=== PATIENT | female | born 1960 | race Two or more races ===

== ENCOUNTER 2016-11-22 15:47 | Emergency (ER) | payer OTHER ==
[~2016-11-22] VITALS: Ht 162.6 cm; Wt 90.7 kg
[2016-11-22 17:14] VITALS: BP 102/61
[2016-11-22] MEDS ORDERED: KETOROLAC TROMETH 60MG/2ML VIAL IM ONE (19:45)
== END 2016-11-22 19:55 | disposition home or self-care (01) ==
LOC: ER 16:02
DX: S76.012A Strain of muscle, fascia and tendon of left hip, initial encounter (principal); Z88.8 Allergy status to other drugs, medicaments and biological substances; X58.XXXA Exposure to other specified factors, initial encounter; Y93.89 Activity, other specified; Y99.8 Other external cause status; Y92.89 Other specified places as the place of occurrence of the external cause
CPT/HCPCS: 73502; 96372; 99284; J1885